=== PATIENT | male | born 1955 | race Caucasian/White ===

== ENCOUNTER 2019-10-16 11:46 | Inpatient (IN) ==
[2019-10-16] MEDS ORDERED: Bumetanide 1 MG/4 ML VIAL IVP SCH (12:15)
[2019-10-16 12:39] LABS: Basophils % 0.5 %; Eosinophils # 0.1 K/mcL (0.0-0.6); Eosinophils % 1.6 %; Hematocrit 42.8 % (37.5-50.1); Hemoglobin 13.4 g/dL (12.9-16.9); Immature Granulocytes % 0.2 % (0-4); Lymphocytes # 1.1 K/mcL (0.6-4.6); Lymphocytes % 19.2 %; Mean Corpuscular HGB Conc 31.3 g/dL (31.6-35.5); Mean Corpuscular Hemoglobin 26.4 pg (28.0-33.3); Mean Corpuscular Volume 84.4 fL (83.0-100.0); Mean Platelet Volume 10.1 fL (9.4-12.4); Monocytes # 0.4 K/mcL (0.0-1.3); Monocytes % 7.6 %; Neutrophils # 3.9 K/mcL (1.6-8.9); Platelet Count 208 K/mcL (140-400); Red Blood Count 5.07 M/mcL (4.19-5.50); Red Cell Distribution Width 14.9 % (11.5-14.5); Segmented Neutrophils % 70.9 %; White Blood Count 5.5 K/mcL (4.3-11.1)
[2019-10-16 12:40] LABS: INR 1.5; Prothrombin Time 17.6 Seconds (9.4-12.1)
[2019-10-16 12:42] LABS: Activated Partial Thrombo Time 37.1 Seconds (26.0-36.0)
[2019-10-16 12:52] LABS: Alanine Aminotransferase 24 Units/L (7-52); Albumin 3.4 g/dL (3.5-5.7); Albumin/Globulin Ratio 1.2 (1.1-2.2); Alkaline Phosphatase 161 Units/L (34-104); Aspartate Amino Transferase 24 Units/L (13-39); BUN/Creatinine Ratio 16 (6-26); Bilirubin,Direct 0.5 mg/dL (0.0-0.2); Bilirubin,Indirect 0.9 mg/dL (0.0-1.0); Bilirubin,Total 1.4 mg/dL (0.3-1.0); Blood Urea Nitrogen 18 mg/dL (8-23); Calcium 9.4 mg/dL (8.6-10.3); Carbon Dioxide 32 mEq/L (23-29); Chloride 102 mEq/L (98-107); Globulin 2.9 g/dL (2.4-3.5); Glucose 103 mg/dL (70-105); Osmolality,Calculated 296 (280-300); Potassium 3.9 mEq/L (3.5-5.1); Sodium 142 mEq/L (136-145); Total Protein 6.3 g/dL (6.4-8.9); Troponin I < 0.03 ng/mL (< 0.04); eGFR For African Americans > 60 (> 60); eGFR For Non-African Americans > 60 (> 60)
[2019-10-16 13:07] LABS: Bilirubin,Urine Negative (Negative); Blood,Urine Negative (Negative); Clarity,Urine Clear (Clear); Color,Urine Yellow (Yellow); Glucose,Urine (UA) Normal (Normal); Ketones,Urine Negative (Negative); Leukocyte Esterase,Urine Negative (Negative); Nitrite,Urine Negative (Negative); Protein,Urine 100 mg/dL (Neg-Trace); Specific Gravity,Urine 1.017 (1.010-1.025); Urobilinogen,Urine Normal (Normal)
[2019-10-16 13:10] LABS: Bacteria,Urine None Seen per hpf (None-Few); Hyaline Casts,Urine Few per lpf (None-Few); RBC,Urine 0-3 per hpf (0-3); Squamous Epithelial Cell,Urine Many per lpf (None-Few); WBC,Urine 0-3 per hpf (0-3)
[2019-10-16 13:24] LABS: Mucus,Urine Few per lpf (Few)
[2019-10-16 13:29] LABS: Renal Epithelial Cells,Urine Many per hpf (None-Few)
[2019-10-16] MEDS ORDERED: *HR* OxyCODONE Immed Rel 5 MG TABLET PO ONE (15:58)
[2019-10-16] MEDS ORDERED: Naloxone 0.4 MG/ML INJ IVP PRN (16:21)
[2019-10-16] MEDS ORDERED: Dextrose Gel 15 GM/37.5 ML TUBE PO PRN ×2 (16:24)
[2019-10-16] MEDS ORDERED: D5% in Water 1,000 ML IVC PRN (16:24)
[2019-10-16] MEDS ORDERED: *HR* Dextrose 50 % in Water (Syg) 50 ML SYRINGE IVP PRN (16:24)
[2019-10-16] MEDS: Insulin LISPRO 300 UNITS/3 ML VIAL SQ SCH (17:57)
[2019-10-16] MEDS ORDERED: *HR* Heparin 5,000 UNIT/ML VIAL SQ SCH (18:00)
[2019-10-16] MEDS ORDERED: Perflutren Lipid Microsphere 1.3 ML in 0.9 % Sodium Chloride 8.7 ML IVP ONE (20:37)
[2019-10-16] MEDS: Furosemide 40 MG/4 ML VIAL IVP SCH (21:30)
[2019-10-16] MEDS: Insulin DETEMIR 100 UNIT/ML X5UNITS SQ SCH (21:31)
[2019-10-16] MEDS: Apixaban 5 MG TABLET PO SCH (21:31)
[2019-10-17 02:52] LABS: Basophils % 0.5 %; Eosinophils # 0.1 K/mcL (0.0-0.6); Eosinophils % 1.9 %; Hematocrit 44.7 % (37.5-50.1); Hemoglobin 13.5 g/dL (12.9-16.9); Immature Granulocytes % 0.2 % (0-4); Lymphocytes # 1.2 K/mcL (0.6-4.6); Lymphocytes % 20.6 %; Mean Corpuscular HGB Conc 30.2 g/dL (31.6-35.5); Mean Corpuscular Hemoglobin 26.1 pg (28.0-33.3); Mean Corpuscular Volume 86.5 fL (83.0-100.0); Monocytes # 0.6 K/mcL (0.0-1.3); Monocytes % 9.8 %; Platelet Count 199 K/mcL (140-400); Red Blood Count 5.17 M/mcL (4.19-5.50); Red Cell Distribution Width 14.9 % (11.5-14.5); White Blood Count 5.9 K/mcL (4.3-11.1)
[2019-10-17 03:03] LABS: INR 1.5; Prothrombin Time 17.6 Seconds (9.4-12.1)
[2019-10-17 03:14] LABS: BUN/Creatinine Ratio 16 (6-26); Blood Urea Nitrogen 21 mg/dL (8-23); Calcium 9.6 mg/dL (8.6-10.3); Carbon Dioxide 33 mEq/L (23-29); Chloride 99 mEq/L (98-107); Chol/HDL Ratio 2.5 (0-4.9); Cholesterol 81 mg/dL (< 200); Glucose 206 mg/dL (70-105); HDL Cholesterol 33 mg/dL (40-59); LDL Cholesterol,Calculated 34 mg/dL (0-99); Osmolality,Calculated 297 (280-300); Potassium 4.1 mEq/L (3.5-5.1); Sodium 139 mEq/L (136-145); Triglycerides 70 mg/dL (< 150); eGFR For African Americans > 60 (> 60); eGFR For Non-African Americans 53 (> 60)
[2019-10-17 03:27] LABS: Thyroid Stimulating Hormone 6.093 mcIU/mL (0.340-5.600)
[2019-10-17] MEDS ORDERED: Perflutren Lipid Microsphere 1.3 ML in 0.9 % Sodium Chloride 8.7 ML IVP ONE (08:05)
[2019-10-17] MEDS: Apixaban 5 MG TABLET PO SCH ×2 (08:09→21:56)
[2019-10-17] MEDS: Insulin LISPRO 300 UNITS/3 ML VIAL SQ SCH ×3 (08:10→17:20)
[2019-10-17] MEDS: Furosemide 40 MG/4 ML VIAL IVP SCH ×2 (08:10→21:58)
[2019-10-17 10:28] LABS: Triiodothyronine (T3) Free 3.51 pg/mL (2.50-3.90)
[2019-10-17] MEDS ORDERED: Lacri-Lube 3.5 GM TUBE BOTH EYES PRN (10:37)
[2019-10-17] MEDS: Artificial Tears SOLN 15 ML BOTTLE BOTH EYES SCH ×3 (11:46→21:55)
[2019-10-17] MEDS: Insulin DETEMIR 100 UNIT/ML X5UNITS SQ SCH (21:57)
[2019-10-18] MEDS: Acetaminophen 325 MG TABLET PO PRN (01:12)
[2019-10-18 01:42] LABS: BUN/Creatinine Ratio 17 (6-26); Blood Urea Nitrogen 22 mg/dL (8-23); Calcium 9.1 mg/dL (8.6-10.3); Carbon Dioxide 33 mEq/L (23-29); Chloride 98 mEq/L (98-107); Glucose 207 mg/dL (70-105); Osmolality,Calculated 295 (280-300); Potassium 3.8 mEq/L (3.5-5.1); Sodium 138 mEq/L (136-145); eGFR For African Americans > 60 (> 60); eGFR For Non-African Americans 54 (> 60)
[2019-10-18 02:47] LABS: Magnesium 1.6 mg/dL (1.6-2.6)
[2019-10-18] MEDS: Apixaban 5 MG TABLET PO SCH ×2 (08:17→20:33)
[2019-10-18] MEDS: Insulin LISPRO 300 UNITS/3 ML VIAL SQ SCH ×3 (08:17→16:40)
[2019-10-18] MEDS: Furosemide 40 MG/4 ML VIAL IVP SCH (08:17)
[2019-10-18] MEDS: Artificial Tears SOLN 15 ML BOTTLE BOTH EYES SCH ×4 (08:18→20:30)
[2019-10-18] MEDS: Sacubitril/Valsartan 97/103 MG 1 TAB TABLET PO SCH ×2 (14:10→20:32)
[2019-10-18] MEDS: Bumetanide 1 MG TABLET PO SCH (16:39)
[2019-10-18] MEDS: Insulin DETEMIR 100 UNIT/ML X5UNITS SQ SCH (20:33)
[2019-10-19 04:42] LABS: BUN/Creatinine Ratio 18 (6-26); Blood Urea Nitrogen 22 mg/dL (8-23); Calcium 9.1 mg/dL (8.6-10.3); Carbon Dioxide 37 mEq/L (23-29); Chloride 95 mEq/L (98-107); Glucose 204 mg/dL (70-105); Osmolality,Calculated 297 (280-300); Potassium 3.5 mEq/L (3.5-5.1); Sodium 139 mEq/L (136-145); eGFR For African Americans > 60 (> 60); eGFR For Non-African Americans 59 (> 60)
[2019-10-19] MEDS: Acetaminophen 325 MG TABLET PO PRN (05:19)
[2019-10-19] MEDS: Insulin LISPRO 300 UNITS/3 ML VIAL SQ SCH ×2 (08:01→11:41)
[2019-10-19] MEDS: Apixaban 5 MG TABLET PO SCH (08:02)
[2019-10-19] MEDS: Bumetanide 1 MG TABLET PO SCH (08:02)
[2019-10-19] MEDS: Sacubitril/Valsartan 97/103 MG 1 TAB TABLET PO SCH (08:03)
[2019-10-19] MEDS: Artificial Tears SOLN 15 ML BOTTLE BOTH EYES SCH ×2 (08:03→11:41)
[2019-10-19] MEDS ORDERED: Isosorbide MONOnitrate (24 HR) 30 MG TAB.ER.24H PO SCH (09:00)
[2019-10-19 11:11] VITALS: BP 104/62
== END 2019-10-19 16:33 | disposition home or self-care (01) | DRG 292 ==
LOC: 3BNU 11:46 → EMEROOARM 11:46 → SUATTDRO 15:52 → 3BNU 17:03
PROVIDERS: ADMIT Internal Medicine; ATTEND Internal Medicine